=== PATIENT | male | born 1990 | race Hispanic/Latino ===

== ENCOUNTER 2021-09-11 18:06 | Emergency (ER) | payer OTHER, BC | END 2021-09-11 19:50 | disposition home or self-care (01) | LOC: ERS 18:06 | DX: S50.812A Abrasion of left forearm, initial encounter (principal); I10 Essential (primary) hypertension; V89.2XXA Person injured in unspecified motor-vehicle accident, traffic, initial encounter | CPT/HCPCS: 99283 ==